=== PATIENT | female | born 1965 | race Caucasian/White ===

== ENCOUNTER 2016-11-28 13:59 | Emergency (ER) | payer MEDICAID ==
[~2016-11-28] VITALS: Ht 157.5 cm; Wt 90.0 kg
[~2016-11-28 13:59] MED LIST: ALBU18HF INH; CLOT30CR24 TOP; CLOT45CR19 VAG; FLUC150T17 PO; METF500T4 PO; PHEN-538 PO; tetracycline
[2016-11-28 14:40] VITALS: Ht 157.5 cm; Wt 90.0 kg
[2016-11-28 15:20] LABS: ADD SCAN DIFF NO
[2016-11-28 15:22] LABS: BASOPHIL # 0.1 10^3/ul (0.0-0.1); BASOPHILS % 0.8 % (0.0-2.0); EOSINOPHILS # 0.3 10^3/ul (0.0-0.5); EOSINOPHILS % 2.7 % (0.0-7.0); HEMATOCRIT 42.5 % (37.0-47.0); HEMOGLOBIN 14.1 g/dl (12.0-16.0); LYMPHOCYTES % 29.4 % (15.0-51.0); MEAN CORPUSCULAR HEMOGLOBIN 28.1 pg (29.0-33.0); MEAN CORPUSCULAR HGB CONC 33.2 g/dl (32.0-37.0); MEAN CORPUSCULAR VOLUME 84.7 fl (82.0-101.0); MONOCYTE # 0.8 10^3/ul (0.3-0.9); MONOCYTES % 7.4 % (0.0-11.0); NEUTROPHILS % 58.6 % (39.0-77.0); PLATELET COUNT 225 10^3/UL (140-415); RED BLOOD COUNT 5.02 10^6/ul (4.20-5.40); RED CELL DISTRIBUTION WIDTH 12.7 % (11.5-14.5); WHITE BLOOD COUNT 10.2 10^3/ul (4.8-10.8)
[2016-11-28 15:36] LABS: CHLORIDE 104 mmol/L (97-110); POTASSIUM 3.8 mmol/L (3.5-5.1); SODIUM 137 mmol/L (135-144)
[2016-11-28 15:37] LABS: INR 0.91; PROTIME 12.3 Sec (12.2-14.2)
[2016-11-28 15:38] LABS: PARTIAL THROMBOPLASTIN TIME 29.4 Sec (25.0-35.0)
[2016-11-28 15:39] LABS: ANION GAP 11 (8-16); BLOOD UREA NITROGEN 10 mg/dl (7-20); CARBON DIOXIDE 26 mmol/L (21-31); CREATININE 0.45 mg/dl (0.44-1.00)
[2016-11-28 15:40] LABS: CALCIUM 9.4 mg/dl (8.4-10.2); GLUCOSE 281 mg/dl (70-220)
[2016-11-28 15:56] LABS: TROPONIN-I < 0.012 ng/ml (0.00-0.12)
[2016-11-28] MEDS ORDERED: METF500T4 PO (16:07)
[2016-11-28] MEDS ORDERED: MTF1000T PO (16:11)
--- NOTE | 2016-11-28 16:12 | ERD ---
ER Documentation Chief Complaint Date/Time DATE: 11/28/16 TIME: 0109 Chief Complaint Complains of chest pain with a prickly sensation to the chest. HPI 51-year-old female presents the emergency department complaining of right-sided chest discomfort. Patient states that for the last 8-12 hours, she had the acute onset of a prickly sensation to the right side of her chest. This does not radiate. Associated with no shortness of breath, nausea, diaphoresis. Patient reports no fevers, chills, hemoptysis. She currently reports the pain is mild and almost a 0 out of 10. Patient has never had similar type pain before. ROS All systems reviewed and are negative except as per history of present illness. Medications Home Meds Active Scripts Metformin* (Glucophage*) 500 Mg Tab, 500 MG PO DAILY, #20 TAB Prov:HARPREET GABRIEL 11/28/16 Clotrimazole* (Clotrimazole-7*) Vaginal Cream..g., 1 APPLIC VAG HS for 7 Days, EA Prov:JOY NELSON NP 03/03/16 Clotrimazole* (Clotrimazole* AF) 1% - 30 Gm Cream.gm., 1 APPLIC TOP BID for 7 Days, TUB Prov:JOY NELSON NP 03/03/16 Fluconazole* (Diflucan*) 150 Mg Tablet, 150 MG PO ONCE, #1 TAB Prov:JOY NELSON NP 03/03/16 Phenazopyridine Hcl* (Pyridium*) 200 Mg Tab, 200 MG PO TID Y for URINARY PAIN, # 6 TAB Prov:JOY NELSON NP 03/03/16 Reported Medications Metformin* (Glucophage*) Unknown Strength Tab, PO BID, #20 TAB 03/03/16 [tetracycline] No Conflict Check 05/14/13 Albuterol Sulfate* (Ventolin HFA*) 18 Gm Hfa.aer.ad, 2 INH INH Q4 08/13/12 Allergies Allergies: Coded Allergies: No Known Allergy (Unverified , 08/13/12) PMhx/Soc History of Surgery: No Anesthesia Reaction: No Hx Neurological Disorder: No Hx Respiratory Disorders: Yes (ASTHMA) Hx Cardiac Disorders: Yes (HTN ) Hx Psychiatric Problems: No Hx Miscellaneous Medical Probl: Yes (DIABETES) Hx Alcohol Use: No Hx Substance Use: No Hx Tobacco Use: No Smoking Status: Unknown if ever smoked FmHx No history of heart disease Physical Exam Vitals Vital Signs Date Time Temp Pulse Resp B/P Pulse Ox O2 Delivery O2 Flow Rate FiO2 11/28/16 15:38 Nasal Cannula 2 11/28/16 14:40 8.4 84 20 124/74 98 Physical Exam GENERAL: The patient is well developed and appropriate for usual state of health in no apparent distress HEENT: Pupils equal, round, and reactive to light. EOMI. There is no scleral icterus. NECK: C-spine is soft and supple, there is no meningismus. There is no cervical lymphadenopathy. LUNGS: Clear to auscultation bilaterally. There are no rales, wheezes or rhonchi. HEART: Regular rate and rhythm, no murmurs, clicks, rubs or gallops. ABDOMEN: Soft, non-tender, non-distended. There are bowel sounds in all four quadrants. No rebound or guarding. EXTREMITIES: There is no peripheral cyanosis or edema. No focal swelling or erythema. NEURO: The patient moves all four extremities with 5/5 strength. Cranial nerves II - XII are intact. Normal gait. Alert and oriented SKIN: There is no apparent rash or petechiae. HEME/LYMPHATIC: There is no evidence of excessive bruising or lymphedema. PSYCHIATRIC: The patient does not appear anxious or depressed. Result Diagram: 11/28/16 1515 11/28/16 1515 Results 24 hrs Laboratory Tests Test 11/28/16 15:15 White Blood Count 10.210^3/ul Red Blood Count 5.0210^6/ul Hemoglobin 14.1g/dl Hematocrit 42.5% Mean Corpuscular Volume 84.7fl Mean Corpuscular Hemoglobin 28.1pg Mean Corpuscular Hemoglobin Concent 33.2g/dl Red Cell Distribution Width 12.7% Platelet Count 24281^3/UL Mean Platelet Volume 10.0fl Neutrophils % 58.6% Lymphocytes % 29.4% Monocytes % 7.4% Eosinophils % 2.7% Basophils % 0.8% Nucleated Red Blood Cells % 0.0/100WBC Neutrophils # 6.010^3/ul Lymphocytes # 3.010^3/ul Monocytes # 0.810^3/ul Eosinophils # 0.310^3/ul Basophils # 0.110^3/ul Nucleated Red Blood Cells # 0.010^3/ul Prothrombin Time 12.3Sec Prothrombin Time Ratio 1.0 INR International Normalized Ratio 0.91 Activated Partial Thromboplast Time 29.4Sec Sodium Level 137mmol/L Potassium Level 3.8mmol/L Chloride Level 104mmol/L Carbon Dioxide Level 26mmol/L Anion Gap 11 Blood Urea Nitrogen 10mg/dl Creatinine 0.45mg/dl Glucose Level 281mg/dl Calcium Level 9.4mg/dl Troponin I < 0.012ng/ml Procedures/MDM Patient was taken to a room, seen and evaluated. Comfort measures were initiated. Diagnostic tests were ordered and reviewed. 3 LEAD RHYTHM STRIP: Normal sinus rhythm without ectopy EK lead EKG reviewed by myself: Normal Sinus Rhythm Normal Bolton and intervals No ST elevation, depression, or T wave inversion Impression: Normal EKG RADIOLOGY: 1 view CXR reviewed by myself: No bony or soft tissue abnormalities Cardiac silhouette normal Mediastinum normal Lung rodriguez normal without infiltrate, mass, or CHF Pleura normal Impression: normal CXR REEVALUATION: Patient remained comfortable and nontoxic in appearance. MEDICAL DECISION MAKING: Patient presents with chest pain of uncertain etiology. Differential diagnosis considered includes acute myocardial infarction , pulmonary embolism, as well as vascular and pulmonary concerns. I have reviewed the patients clinical risk factors, EKG, lab studies and imaging. At this time, despite the fact that the patient is diabetic, patient has no other significant risk factors. Her description of her pain is completely non- atypical for cardiac etiology and her EKG is completely normal. At this time, I believe that she is low risk. Her negative troponin despite over 8 hours of symptoms is also reassuring. Overall, patient appears to be clinically well and appropriate for outpatient care. Departure Diagnosis: Primary Impression: Chest pain Condition: Stable Patient Instructions: Chest Pain, Uncertain Cause Additional Instructions: See your doctor for follow-up as discussed. Take a copy of your test results, if appropriate, to this follow-up visit. See your doctor or return here if your symptoms do not improve as expected. At any time, please return to the emergency department for any change or worsening in her symptoms. HARPREET GABRIEL November 28, 2016 16:12
--- NOTE | 2016-11-28 19:02 | RADRPT ---
PROCEDURE: Chest x-ray CLINICAL INDICATION: Chest pain TECHNIQUE: Chest single view COMPARISON: 08/02/2013 FINDINGS: The heart is normal in size. The pulmonary vessels are normal in caliber. The lungs are clear. Th e costophrenic angles are sharp. The visualized bony thorax is unremarkable. IMPRESSION: No acute cardiopulmonary disease. No interval change RPTAT: HH .Sotero Abraham MD, MD Date Time Electronically viewed and signed by .Sotero Abraham MD, on 11/28/2016 19:02 .W/
== END 2016-11-28 16:22 | disposition home or self-care (01) ==
LOC: E/R 13:59
DX: R07.9 Chest pain, unspecified (principal); I10 Essential (primary) hypertension; E11.9 Type 2 diabetes mellitus without complications; J45.909 Unspecified asthma, uncomplicated; Z79.84 Long term (current) use of oral hypoglycemic drugs
CPT/HCPCS: 36415; 71010; 80048; 84484; 85025; 85610; 85730; 93005; Z7502

== ENCOUNTER 2016-12-10 19:22 | Emergency (ER) | payer MEDICAID ==
[~2016-12-10] VITALS: Ht 149.9 cm; Wt 89.5 kg
[~2016-12-10 19:22] MED LIST changes: -ALBU18HF INH; -CLOT30CR24 TOP; -CLOT45CR19 VAG; -FLUC150T17 PO; +MTF1000T PO; -PHEN-538 PO; -tetracycline
[2016-12-10 19:27] VITALS: Ht 149.9 cm; Wt 89.5 kg
--- NOTE | 2016-12-10 20:03 | ERD ---
ER Documentation Chief Complaint Date/Time DATE: 12/10/16 TIME: 19:54 Chief Complaint SOB and Dizziness x30 minutes ago HPI 51-year-old female who presents emergency department for shortness of breath, epigastric pain, right mid back pain, dizziness that started 30 minutes ago. Daughter stated that patient vomited while on the waiting room with nonbilious and nonbloody vomitus. Denies headache, loss of consciousness, dizziness, blurry vision, changes in vision, photophobia, facial pain, ear pain, throat pain, difficulty swallowing, neck pain, shoulder pain, hemoptysis, loss of appetite, hematochezia, diarrhea, constipation, urinary symptoms, , the possibility of being , bladder and bowel incontinences, extremity weakness, extremity tenderness, numbness or tingling sensation, difficulty walking, recent travel, recent exposure to illness, recent antibiotic use in the last 3 months, fever, chills. Allergy: NKDA. PMH: Diabetes, hypertension, hyperlipidemia. Family medical history: AO LMP: Stated that she is on her period right now. Medications: Metformin, glipizide, lisinopril, atorvastatin. Surgery: Denies. Primary Social History: Not working at this time. Denies smoking, use of alcohol, use of illegal drugs. ROS All systems reviewed and are negative except as per history of present illness. Medications Home Meds Active Scripts Meclizine Hcl* (Antivert*) 12.5 Mg Tab, 12.5 MG PO Q6H Y for DIZZINESS, #20 TAB Prov:PASILABAN,KLAR F 12/10/16 Ondansetron (Ondansetron Odt) 4 Mg Tab.rapdis, 4 MG PO Q8 Y for NAUSEA AND/OR VOMITING, #20 TAB Prov:PASILABAN,ENZOAR F 12/10/16 Metformin* (Glucophage*) 500 Mg Tab, 500 MG PO DAILY, #20 TAB Prov:HARPREET GABRIEL 11/28/16 Reported Medications Metformin* (Glucophage*) 1,000 Mg Tablet, 1000 MG PO BID, #60 TAB 11/28/16 Allergies Allergies: Coded Allergies: No Known Allergy (Unverified , 12/10/16) PMhx/Soc Medical and Surgical Hx: pt denies Surgical Hx History of Surgery: No Anesthesia Reaction: No Hx Neurological Disorder: No Hx Respiratory Disorders: Yes (ASTHMA) Hx Cardiac Disorders: Yes (HTN ) Hx Psychiatric Problems: No Hx Miscellaneous Medical Probl: Yes (DIABETES) Hx Alcohol Use: No Hx Substance Use: No Hx Tobacco Use: No Smoking Status: Never smoker Physical Exam Vitals Vital Signs Date Time Temp Pulse Resp B/P Pulse Ox O2 Delivery O2 Flow Rate FiO2 12/10/16 19:27 97.5 117 22 161/84 97 Physical Exam CONSTITUTIONAL: Well-appearing; well-nourished; in no apparent distress. HEAD: Normocephalic; atraumatic. EYES: Conjunctiva clear, sclera non-icteric, EOM intact. PERRL Ears: Hearing intact. EACs clear, TMs non-bulging, non-inflamed, translucent & mobile, ossicles normal appearance, No obstructions, no erythema, no discharges Nose: No obstructions. No polyps. No external lesions. Mucosa non-inflamed. No external lesions, septum and turbinates normal. No rhinorrhea. No discharges. Frontal sinus is non-tender to palpation. Maxillary sinus is non-tender to palpation. MOUTH: Moist mucous membranes, no lesion, no obstructions, no vesicles, no thrush, patent airway Throat: Uvula in midline. Right tonsil is +1 with no erythema, no exudate. Left tonsil is +1 with no erythema, no exudate. Tolerating secretions well. Good gag reflex. Patent airway. Neck: Supple, without lesions, bruits, or adenopathy. No mass. Thyroid non- enlarged and non-tender to palpation. CHEST: Symmetrical chest. Respirations even and not labored. No retractions noted. CARDIOVASCULAR: Normal S1, S2. RRR. No murmurs, gallops. RESPIRATORY: Normal chest excursion with respiration; breath sounds clear and equal bilaterally; no wheezes, rhonchi, or rales. Breathing even and unlabored. Speaking in clear, full, and complete sentences w/ ease. ABDOMEN: Normal bowel sounds normal. Soft, round, non-distended, non-guarding, no tenderness, no rebound, no organomegaly, no masses, no pulsating abdominal mass. No hernia. No peritoneal signs. : No CVA tenderness. BACK: Symmetrical shoulder. Spine is midline without deformity, tenderness. No evidence of trauma or deformity. PELVIS: Stable pelvis. No evidence of trauma or deformity. MUSCULOSKELETAL: Normal gait and station. No misalignment, asymmetry, crepitation, defects, tenderness, masses, effusions, decreased range of motion, instability, atrophy or abnormal strength or tone in the head, neck, spine, ribs , pelvis or extremities. No calf tenderness. NEUROVASCULAR: Distal pulses are present. Pedal pulse are present, equal, and normal. Capillary refills are < 2 seconds. NEUROLOGIC: Alert and oriented x4. Speaks full and clear sentences. Cranial Nerves II-XII normal. Sensation to pain, touch, and proprioception normal. Grossly unremarkable. No neurologic deficits. Romberg test is negative. PSYCHOLOGICAL: The patients mood and manner are appropriate. No hallucinations , delusions. Not SI. Not HI. Has the capacity to decide for self SKIN: Normal for age and ethnicity; warm; dry; good turgor; no apparent lesions or exudates. No rashes, hives, discoloration. Intact. Result Diagram: 12/10/16204912/10/162049 Results 24 hrs Laboratory Tests Test 12/10/16 20:50 12/10/16 20:55 White Blood Count 12.410^3/ul Red Blood Count 4.8910^6/ul Hemoglobin 13.4g/dl Hematocrit 41.8% Mean Corpuscular Volume 85.5fl Mean Corpuscular Hemoglobin 27.4pg Mean Corpuscular Hemoglobin Concent 32.1g/dl Red Cell Distribution Width 12.8% Platelet Count 81469^3/UL Mean Platelet Volume 10.3fl Neutrophils % 67.9% Lymphocytes % 21.7% Monocytes % 6.4% Eosinophils % 2.4% Basophils % 0.5% Nucleated Red Blood Cells % 0.0/100WBC Neutrophils # 8.510^3/ul Lymphocytes # 2.710^3/ul Monocytes # 0.810^3/ul Eosinophils # 0.310^3/ul Basophils # 0.110^3/ul Nucleated Red Blood Cells # 0.010^3/ul Prothrombin Time 12.6Sec Prothrombin Time Ratio 1.0 INR International Normalized Ratio 0.94 Activated Partial Thromboplast Time 29.7Sec Sodium Level 140mmol/L Potassium Level 4.3mmol/L Chloride Level 100mmol/L Carbon Dioxide Level 28mmol/L Anion Gap 16 Blood Urea Nitrogen 11mg/dl Creatinine 0.57mg/dl Glucose Level 273mg/dl Calcium Level 9.5mg/dl Total Bilirubin 0.4mg/dl Direct Bilirubin 0.00mg/dl Indirect Bilirubin 0.4mg/dl Aspartate Amino Transf (AST/SGOT) 28IU/L Alanine Aminotransferase (ALT/SGPT) 37IU/L Alkaline Phosphatase 104IU/L Troponin I < 0.012ng/ml Total Protein 7.6g/dl Albumin 4.8g/dl Globulin 2.80g/dl Albumin/Globulin Ratio 1.71 Amylase Level 78U/L Lipase 113U/L Urine Color YELLOW Urine Clarity SLIGHTLY CLOUDY Urine pH 5.5 Urine Specific [place] >=1.030 Urine Ketones 15 Urine Nitrite NEGATIVE Urine Bilirubin 1+ Urine Ictotest NEGATIVE Urine Urobilinogen 0.2 E.U./dL Urine Leukocyte Esterase NEGATIVE Urine Microscopic RBC 2-5/HPF Urine Microscopic WBC 0-2/HPF Urine Squamous Epithelial Cells MODERATE Urine Calcium Oxalate Crystals MANY Urine Bacteria FEW Urine Hemoglobin 1+ Urine Glucose 0.1%% Urine Total Protein 4+ Current Medications Medications (Trade) Dose Ordered Sig/Mayra Route PRN Reason Start Time Stop Time Status Last Admin Dose Admin Ondansetron HCl 4 mg 4 mg ONCE STAT IV 12/10/16 20:17 12/10/16 20:18 DC 12/10/16 20:27 Sodium Chloride (NS) 500 ml @ 500 mls/hr Q1H ONCE IV 12/10/16 22:30 12/10/16 23:29 DC 12/10/16 22:20 Procedures/MDM Examination: Please see physical examination Disease process, medical treatment was explained to the patient and family member. They verbalized understanding and agreed with the diagnostic tests, medical treatment, and follow-up care. EKG: Sinus tachycardia with ventricular rate of 110 bpm. No evidence of acute myocardial infarction. Blood works: Reviewed. POC urine : Negative. Urinalysis: Reviewed. Treatment: IV insertion. Zofran 4 mg IV. Normal saline 500 mg IV bolus. P.o. challenge. Re-evaluation: Alert and oriented 4. Speaks full and clear sentences. Denies headache, dizziness, blurred vision, neck pain, shoulder pain, chest, abdominal pain, back pain, nausea. Respirations even and unlabored. Lung sounds are clear to auscultation. No episode of emesis in the emergency department. There is no right upper/right lower/epigastric/left upper/left lower abdominal tenderness and light and deep palpation. Negative on Rovsing's sign. Negative Maribel sign. No peritoneal signs. No CVA tenderness. No pain on eye movement. No neurological deficits. Romberg test is negative. No neurovascular deficit per Consultation: None. Differential diagnosis: Acute myocardial infarction versus acute coronary syndrome versus pneumonia versus chest wall pain versus Medical decision makin-year-old female who presents emergency department for shortness of breath, epigastric pain, right mid back pain, dizziness that started 30 minutes ago. Daughter stated that patient vomited while on the waiting room with nonbilious and nonbloody vomitus. Patient's complaint, patient's history about her complaint, my physical findings, my diagnostic test results, my reevaluation are consistent with final diagnosis of shortness of breath that has resolved, dizziness. Medications prescribed are the following: Antivert. Zofran. Patient and family member are made aware of the side effects and adverse reactions of the medications prescribed. Instructed on when to seek emergent and medical attention in case allergic/anaphylactic reactions or severe side effects and or adverse reactions to medications. Patient and family member verbalized understanding. Patient instructed Instructed to follow-up with his PCP in 24-48 hours. Instructed to Call 911 for chest pain, shortness of breath. Advised to come back here in ED as soon as possible for severity of symptoms which includes but not limited to: any new symptoms; shortness of breath/difficulty of breathing; cardiovascular changes; severe gastrointestinal symptoms; signs and symptoms of bleeding and or infection; signs of compartment syndrome/neurovascular changes; neurological changes/deficits. Patient and family member verbalized understanding. Upon discharge, patient is alert and oriented x 4, speaks full and clear sentences, denies pain, has no neurological deficits, has no neurovascular deficits, difficulty of breathing. Breathing even and unlabored. Lung sounds are clear to auscultation. Not in distress. Appears comfortable. Ambulatory with steady gait. Appears satisfied with care provided here in ED. Departure Diagnosis: Primary Impression: Shortness of breath Additional Impression: Dizziness Condition: Stable Additional Instructions: Instructed to follow-up with his PCP in 24-48 hours. Instructed to Call 911 for chest pain, shortness of breath. Advised to come back here in ED as soon as possible for severity of symptoms which includes but not limited to: any new symptoms; shortness of breath/difficulty of breathing; cardiovascular changes; severe gastrointestinal symptoms; signs and symptoms of bleeding and or infection; signs of compartment syndrome/neurovascular changes; neurological changes/deficits. Patient and family member verbalized understanding. JOY BUCHANAN Dec 10, 2016 20:03
[2016-12-10] MEDS ORDERED: ONDANSETRON 4 MG INJ IV STA (20:17)
[2016-12-10 21:05] LABS: ADD SCAN DIFF NO
[2016-12-10 21:07] LABS: BASOPHIL # 0.1 10^3/ul (0.0-0.1); BASOPHILS % 0.5 % (0.0-2.0); EOSINOPHILS # 0.3 10^3/ul (0.0-0.5); EOSINOPHILS % 2.4 % (0.0-7.0); HEMATOCRIT 41.8 % (37.0-47.0); HEMOGLOBIN 13.4 g/dl (12.0-16.0); LYMPHOCYTES # 2.7 10^3/ul (0.8-2.9); LYMPHOCYTES % 21.7 % (15.0-51.0); MEAN CORPUSCULAR HEMOGLOBIN 27.4 pg (29.0-33.0); MEAN CORPUSCULAR HGB CONC 32.1 g/dl (32.0-37.0); MEAN CORPUSCULAR VOLUME 85.5 fl (82.0-101.0); MEAN PLATELET VOLUME 10.3 fl (7.4-10.4); MONOCYTE # 0.8 10^3/ul (0.3-0.9); MONOCYTES % 6.4 % (0.0-11.0); NEUTROPHIL # 8.5 10^3/ul (1.6-7.5); NEUTROPHILS % 67.9 % (39.0-77.0); PLATELET COUNT 227 10^3/UL (140-415); RED BLOOD COUNT 4.89 10^6/ul (4.20-5.40); RED CELL DISTRIBUTION WIDTH 12.8 % (11.5-14.5); WHITE BLOOD COUNT 12.4 10^3/ul (4.8-10.8)
[2016-12-10 21:08] LABS: ADD UMIC YES; URINE BILIRUBIN (Dip) 1+ (NEGATIVE); URINE BLOOD (Dip) 1+ (NEGATIVE); URINE COLOR YELLOW (YELLOW); URINE KETONES (Dip) 15 (NEGATIVE); URINE LEUKOCYTE ESTERASE (Dip) NEGATIVE (NEGATIVE); URINE NITRITE (Dip) NEGATIVE (NEGATIVE); URINE TOTAL PROTEIN (Dip) 4+ (NEGATIVE); URINE UROBILINOGEN (Dip) 0.2 E.U./dL (0.1-1.0)
[2016-12-10 21:16] LABS: INR 0.94; PROTIME 12.6 Sec (12.2-14.2)
[2016-12-10 21:17] LABS: PARTIAL THROMBOPLASTIN TIME 29.7 Sec (25.0-35.0)
[2016-12-10 21:20] LABS: ALANINE AMINOTRANSFERASE 37 IU/L (13-69); ALBUMIN 4.8 g/dl (3.3-4.9); ALBUMIN/GLOBULIN RATIO 1.71; ALKALINE PHOSPHATASE 104 IU/L (42-121); AMYLASE 78 U/L (11-123); ANION GAP 16 (8-16); ASPARTATE AMINO TRANSFERASE 28 IU/L (15-46); BILIRUBIN,INDIRECT 0.4 mg/dl (0-1.1); BILIRUBIN,TOTAL 0.4 mg/dl (0.2-1.3); BLOOD UREA NITROGEN 11 mg/dl (7-20); CALCIUM 9.5 mg/dl (8.4-10.2); CARBON DIOXIDE 28 mmol/L (21-31); CHLORIDE 100 mmol/L (97-110); CREATININE 0.57 mg/dl (0.44-1.00); GLUCOSE 273 mg/dl (70-220); POTASSIUM 4.3 mmol/L (3.5-5.1); SODIUM 140 mmol/L (135-144); TOTAL PROTEIN 7.6 g/dl (6.1-8.1)
[2016-12-10 21:21] LABS: ICTOTEST NEGATIVE (NEGATIVE)
[2016-12-10 21:22] LABS: BACTERIA,URINE FEW; SQUAMOUS EPITHELIAL CELL,UR MODERATE
[2016-12-10 21:32] LABS: TROPONIN-I < 0.012 ng/ml (0.00-0.12)
--- NOTE | 2016-12-10 21:59 | RADRPT ---
PROCEDURE: XR Chest. CLINICAL INDICATION: Cough. TECHNIQUE: PA and lateral views of the chest were obtained. COMPARISON: 08/02/2013 FINDINGS: The trachea central bronchi are patent. The cardiomediastinal silhouette is within normal limits. The lungs are clear. No pleural effusion or pneumothorax is identified. The visualized osseous str uctures are intact. RPTAT:HJJR IMPRESSION: Unremarkable two-view chest x-ray. Physician Galen Date Time Electronically viewed and signed by Gildardo Limon Physician on 12/10/2016 21:58 JR/
[2016-12-10] MEDS ORDERED: MECL12.574 PO (22:17)
[2016-12-10] MEDS ORDERED: ONDA4TAB14 PO (22:17)
[2016-12-10] MEDS ORDERED: SOD CHLORIDE 0.9% 500 ML IV ONE (22:30)
== END 2016-12-10 23:58 | disposition home or self-care (01) ==
LOC: FTE 19:22
DX: R06.02 Shortness of breath (principal); R42 Dizziness and giddiness; I10 Essential (primary) hypertension; J45.909 Unspecified asthma, uncomplicated; E11.9 Type 2 diabetes mellitus without complications; Z79.84 Long term (current) use of oral hypoglycemic drugs
CPT/HCPCS: 36415; 71020; 80053; 81001; 82150; 83690; 84484; 85025; 85610; 85730; 96374; J2405; J7040; Z7502; 93005

== ENCOUNTER 2018-09-04 19:41 | Emergency (ER) | payer MEDICAID ==
[~2018-09-04] VITALS: Ht 157.5 cm; Wt 90.0 kg
[~2018-09-04 19:41] MED LIST changes: +MECL12.574 PO; +METF-849 PO; -METF500T4 PO; +ONDA4TAB14 PO
[2018-09-04 19:48] VITALS: Ht 157.5 cm; Wt 90.0 kg
[2018-09-04] MEDS ORDERED: morphine 4 MG/ML VIAL IV STA (22:57)
[2018-09-04] MEDS ORDERED: ONDANSETRON 4 MG INJ IV STA (22:57)
[2018-09-04] MEDS ORDERED: SOD CHLORIDE 0.9% 1,000 ML IV STA (22:57)
[2018-09-05] MEDS ORDERED: TRAM50TA2 PO (01:56)
[2018-09-05] MEDS ORDERED: ONDA4TAB14 PO (01:56)
[2018-09-05] MEDS ORDERED: SULF1TAB31 PO (01:56)
--- NOTE | 2018-09-05 01:59 | ERD ---
ER Documentation Chief Complaint Chief Complaint LEFT FLANK PAIN X 4 DAYS HPI This is a very pleasant 52-year-old female with mild to moderate left flank pain over the past 4 days that is colicky in nature with no exacerbating relieving factors. He does have mild associated nausea but no vomiting. No fevers or chills. No dysuria. No other current complaints. ROS All systems reviewed and are negative except as per history of present illness. Medications Home Meds Active Scripts Ondansetron (Ondansetron Odt) 4 Mg Tab.rapdis, 4 MG PO Q6H PRN for NAUSEA AND/OR VOMITING, #10 TAB Prov:KEENAN HARE S. 09/05/18 Tramadol HCl (Tramadol HCl) 50 Mg Tablet, 50 MG PO Q4 PRN for PAIN, #20 TAB Prov:KEENAN HARE S. 09/05/18 Sulfamethoxazole/Trimethoprim* (Bactrim Ds* Tablet) 1 Each Tablet, 1 TAB PO BID, #6 TAB Prov:KEENAN HARE S. 09/05/18 Meclizine Hcl* (Antivert*) 12.5 Mg Tab, 12.5 MG PO Q6H PRN for DIZZINESS, #20 TAB Prov:CYILAJOY MCDOWELL F 12/10/16 Ondansetron (Ondansetron Odt) 4 Mg Tab.rapdis, 4 MG PO Q8 PRN for NAUSEA AND/OR VOMITING, #20 TAB Prov:CYILAJOY MCDOWELL F 12/10/16 Metformin* (Glucophage*) 500 Mg Tab, 500 MG PO DAILY, #20 TAB Prov:HARPREET GABRIEL 11/28/16 Reported Medications Metformin* (Glucophage*) 1,000 Mg Tablet, 1000 MG PO BID, #60 TAB 11/28/16 Allergies Allergies: Coded Allergies: No Known Allergy (Unverified , 12/10/16) PMhx/Soc Medical and Surgical Hx: pt denies Surgical Hx History of Surgery: No Anesthesia Reaction: No Hx Neurological Disorder: No Hx Respiratory Disorders: Yes (ASTHMA) Hx Cardiac Disorders: Yes (HTN ) Hx Psychiatric Problems: No Hx Miscellaneous Medical Probl: Yes (DIABETES) Hx Alcohol Use: No Hx Substance Use: No Hx Tobacco Use: No Smoking Status: Never smoker Physical Exam Vitals Vital Signs Date Temp Pulse Resp B/P (MAP) Pulse Ox O2 O2 Flow FiO2 Time Delivery Rate 09/05/18 98 13 119/60 100 Room Air 01:14 (79) 09/04/18 98.6 85 17 133/70 100 Room Air 23:36 (91) 09/04/18 99.8 108 20 182/77 97 19:48 (112) Physical Exam Const: No acute distress Head: Atraumatic Eyes: Normal Conjunctiva ENT: Normal External Ears, Nose and Mouth. Neck: Full range of motion. No meningismus. Resp: Clear to auscultation bilaterally Cardio: Regular rate and rhythm, no murmurs Abd: Soft, non tender, non distended. Normal bowel sounds Skin: No petechiae or rashes Back: No midline or flank tenderness Ext: No cyanosis, or edema Neur: Awake and alert Psych: Normal Mood and Affect Result Diagram: 09/04/18 2312 09/04/18 2312 Results 24 hrs Laboratory Tests Test 09/04/18 23:10 09/04/18 23:12 09/04/18 23:13 Bedside Urine pH (LAB) 5.5 Bedside Urine Protein (LAB) 1+ Bedside Urine Glucose (UA) Negative Bedside Urine Ketones (LAB) Trace Bedside Urine Blood 2+ Bedside Urine Nitrite (LAB) Negative Bedside Urine Leukocyte Esterase (L Negative White Blood Count 13.7 10^3/ul Red Blood Count 4.43 10^6/ul Hemoglobin 12.4 g/dl Hematocrit 39.2 % Mean Corpuscular Volume 88.5 fl Mean Corpuscular Hemoglobin 28.0 pg Mean Corpuscular Hemoglobin Concent 31.6 g/dl Red Cell Distribution Width 13.0 % Platelet Count 279 10^3/UL Mean Platelet Volume 9.6 fl Immature Granulocytes % 0.600 % Neutrophils % 66.7 % Lymphocytes % 23.1 % Monocytes % 6.7 % Eosinophils % 2.3 % Basophils % 0.6 % Nucleated Red Blood Cells % 0.0 /100WBC Immature Granulocytes # 0.080 10^3/ul Neutrophils # 9.1 10^3/ul Lymphocytes # 3.2 10^3/ul Monocytes # 0.9 10^3/ul Eosinophils # 0.3 10^3/ul Basophils # 0.1 10^3/ul Nucleated Red Blood Cells # 0.0 10^3/ul Urine Color YELLOW Urine Clarity CLOUDY Urine pH 5.0 Urine Specific [place] 1.023 Urine Ketones TRACE mg/dL Urine Nitrite NEGATIVE mg/dL Urine Bilirubin NEGATIVE mg/dL Urine Urobilinogen NEGATIVE mg/dL Urine Leukocyte Esterase NEGATIVE Ish/ul Urine Microscopic RBC 45 /HPF Urine Microscopic WBC 4 /HPF Urine Squamous Epithelial Cells MODERATE /HPF Urine Mucus MANY /HPF Urine Hemoglobin 2+ mg/dL Urine Glucose NEGATIVE mg/dL Urine Total Protein NEGATIVE mg/dl Sodium Level 139 mmol/L Potassium Level 4.1 mmol/L Chloride Level 99 mmol/L Carbon Dioxide Level 28 mmol/L Anion Gap 12 Blood Urea Nitrogen 14 mg/dl Creatinine 0.65 mg/dl Est Glomerular Filtrat Rate mL/min > 60 mL/min Glucose Level 151 mg/dl Calcium Level 9.7 mg/dl Total Bilirubin 0.7 mg/dl Direct Bilirubin 0.00 mg/dl Indirect Bilirubin 0.7 mg/dl Aspartate Amino Transf (AST/SGOT) 20 IU/L Alanine Aminotransferase (ALT/SGPT) 17 IU/L Alkaline Phosphatase 72 IU/L Total Protein 8.0 g/dl Albumin 4.5 g/dl Globulin 3.50 g/dl Albumin/Globulin Ratio 1.28 Lipase 111 U/L POC Beta HCG, Qualitative NEGATIVE Current Medications Medications Dose Sig/Mayra Start Time Status Last (Trade) Ordered Route PRN Stop Time Admin Dose Reason Admin Sodium 1,000 ml @ Q1H STAT 09/04/18 DC 09/04/18 Chloride 1,000 mls/hr IV 22:57 09/04/18 23:10 23:56 Morphine 4 mg ONCE STAT 09/04/18 DC 09/04/18 Sulfate IV 22:57 09/04/18 23:10 (morphine) 22:58 Ondansetron 4 mg ONCE STAT 09/04/18 DC 09/04/18 HCl (Zofran IV 22:57 09/04/18 23:10 Inj) 22:58 Procedures/MDM Emergency department course: Patient seen and evaluated by triage nurse. Placed in bed from evaluation. Had intravenous access. Given fluid bolus. Given pain medications. Has had CT scan of the abdomen pelvis. Medical decision makin-year-old female with renal colic. At this point she is clinically stable for outpatient management and she has no evidence of intra- abdominal surgical process. She is now pain controlled and tolerating p.o. She is stable for trial of outpatient management. Patient be discharged home. She has been advised to follow-up in 8 hours for serial abdominal exams to which she agrees. Departure Diagnosis: Primary Impression: Flank pain Condition: Stable Patient Instructions: Kidney Stone W/ Colic KEENAN HARE Sep 05, 2018 01:59
[2018-09-05 02:13] VITALS: BP 131/79; PULSE 85; RESP 18
== END 2018-09-05 02:13 | disposition home or self-care (01) ==
LOC: E/R 19:41
DX: R10.9 Unspecified abdominal pain (principal); E11.9 Type 2 diabetes mellitus without complications; I10 Essential (primary) hypertension; J45.909 Unspecified asthma, uncomplicated; Z79.84 Long term (current) use of oral hypoglycemic drugs
CPT/HCPCS: 36415; 74176; 80053; 81001; 81025; 83690; 85025; 87086; 96374; 96375; J2270; J2405; J7030; Z7502; Z7610; 81003

== ENCOUNTER 2018-10-19 20:35 | Emergency (ER) | payer MEDICAID ==
[~2018-10-19] VITALS: Ht 154.9 cm; Wt 89.4 kg
[~2018-10-19 20:35] MED LIST changes: +SULF1TAB31 PO; +TRAM50TA2 PO
[2018-10-19 20:56] VITALS: Ht 154.9 cm; Wt 89.4 kg
[2018-10-19] MEDS ORDERED: ALBUTEROL 0.083% (NEB) 2.5 MG/3 ML AMP NEB STA (23:36)
[2018-10-19] MEDS ORDERED: IPRATROPIUM (NEB) 0.5 MG/2.5 ML AMP NEB STA (23:36)
[2018-10-20] MEDS ORDERED: DEXAMETHASONE 4 MG/ML 1 ML INJ PO ONE
[2018-10-20] MEDS ORDERED: AZIT250T PO (00:25)
--- NOTE | 2018-10-20 00:27 | ERD ---
ER Documentation Chief Complaint Chief Complaint cough x 3 days HPI 53-year-old female with history of diabetes and hypertension and asthma is here complaining of 3 days of fever and cough. Her cough is dry and worse at night and her asthma is making it worse. She uses her inhaler at home. No hemoptysis or unplanned weight loss. No vomiting. No chest pain or palpitations. ROS All systems reviewed and are negative except as per history of present illness. Medications Home Meds Active Scripts Azithromycin* (Zithromax*) 250 Mg Tablet, 250 MG PO .JohnPACK DIRECTED, #6 TAB TAKE 500 MG (2 TABS) THE FIRST DAY THEN 250 MG (1 TAB) DAYS 2-5 Prov:KAT COLLINS PA-C 10/20/18 Ondansetron (Ondansetron Odt) 4 Mg Tab.rapdis, 4 MG PO Q6H PRN for NAUSEA AND/OR VOMITING, #10 TAB Prov:KEENAN HARE S. 09/05/18 Tramadol HCl (Tramadol HCl) 50 Mg Tablet, 50 MG PO Q4 PRN for PAIN, #20 TAB Prov:KEENAN HARE S. 09/05/18 Sulfamethoxazole/Trimethoprim* (Bactrim Ds* Tablet) 1 Each Tablet, 1 TAB PO BID, #6 TAB Prov:KEENAN HARE S. 09/05/18 Meclizine Hcl* (Antivert*) 12.5 Mg Tab, 12.5 MG PO Q6H PRN for DIZZINESS, #20 TAB Prov:JOY BUCHANAN F 12/10/16 Ondansetron (Ondansetron Odt) 4 Mg Tab.rapdis, 4 MG PO Q8 PRN for NAUSEA AND/OR VOMITING, #20 TAB Prov:JOY BUCHANAN F 12/10/16 Metformin* (Glucophage*) 500 Mg Tab, 500 MG PO DAILY, #20 TAB Prov:HARPREET GABRIEL 11/28/16 Reported Medications Metformin* (Glucophage*) 1,000 Mg Tablet, 1000 MG PO BID, #60 TAB 11/28/16 Allergies Allergies: Coded Allergies: No Known Allergy (Unverified , 12/10/16) PMhx/Soc Medical and Surgical Hx: pt denies Surgical Hx History of Surgery: No Anesthesia Reaction: No Hx Neurological Disorder: No Hx Respiratory Disorders: Yes (ASTHMA) Hx Cardiac Disorders: Yes (HTN ) Hx Psychiatric Problems: No Hx Miscellaneous Medical Probl: Yes (DIABETES) Hx Alcohol Use: No Hx Substance Use: No Hx Tobacco Use: No Smoking Status: Never smoker FmHx Family History: diabetes Physical Exam Vitals Vital Signs Date Temp Pulse Resp B/P (MAP) Pulse Ox O2 O2 Flow FiO2 Time Delivery Rate 10/19/18 83 18 99 21 23:52 10/19/18 98.0 91 18 143/78 98 20:56 (99) Physical Exam INITIAL VITAL SIGNS: Reviewed by me GENERAL: Awake, alert and oriented x 4, well appearing, nontoxic, speaking in full sentences. No acute distress HEAD: Atraumatic NECK: Supple. No masses. Full range of motion. No meningismus. No midline tenderness. EYES: EOMI. PERRL. RESPIRATORY: Scant wheezing bilaterally CV: Regular rate and rhythm. No murmurs, rubs, or gallops. Results 24 hrs Current Medications Medications Dose Sig/Mayra Start Time Status Last (Trade) Ordered Route PRN Stop Time Admin Dose Reason Admin 10 mg ONCE ONCE 10/20/18 DC Dexamethasone PO 00:00 (Decadron) 10/20/18 00:01 Albuterol 5 mg ONCE STAT 10/19/18 DC 10/19/18 (Proventil NEB 23:36 23:52 0.083% (Neb)) 10/19/18 23:37 Ipratropium 0.5 mg ONCE STAT 10/19/18 DC 10/19/18 [place] NEB 23:36 23:51 (Atrovent 10/19/18 23:37 0.02% (Neb)) Procedures/MDM Patient given Decadron and a breathing treatment with improvement. Discharged with azithromycin. Patient counseled regarding my diagnostic impression and care plan. Prior to discharge all questions answered. Pt agrees with treatment plan and understands strict return precautions. Pt is instructed to follow up with primary care provider within 24-48 hours. Precautionary instructions provided including instructions to return to the ER if not improving or for any worsening or changing symptoms or concerns. Departure Diagnosis: Primary Impression: Wheezy bronchitis Condition: Stable Patient Instructions: Bronchitis With Wheezing (Adult) Additional Instructions: Llame al doctor MAANA y eligio rangel KEVIN PARA DENTRO DE 1-2 PIÑA.Dgale a la secretaria que nosotros le instruimos hacer esta kevin.Avise o llame si roberts condicin se empeora antes de la kevin. Regresa aqui si peor o no mejor. KAT COLLINS PA-C Oct 20, 2018 00:27
[2018-10-20 01:09] VITALS: BP 138/76; PULSE 90; RESP 18
== END 2018-10-20 01:09 | disposition home or self-care (01) ==
LOC: FTE 20:35
DX: J20.9 Acute bronchitis, unspecified (principal); I10 Essential (primary) hypertension; E11.9 Type 2 diabetes mellitus without complications; Z79.84 Long term (current) use of oral hypoglycemic drugs
CPT/HCPCS: 94664; J1100; Z7502; Z7610

== ENCOUNTER 2018-11-17 17:37 | Emergency (ER) | payer MEDICAID ==
[~2018-11-17] VITALS: Wt 78.0 kg
[~2018-11-17 17:37] MED LIST changes: +AZIT250T PO
[2018-11-17] MEDS ORDERED: ALBUTEROL 0.5% (NEB) 2.5 MG/0.5 ML AMP INH STA (18:31)
[2018-11-17] MEDS ORDERED: IPRATROPIUM (NEB) 0.5 MG/2.5 ML AMP INH STA (18:31)
[2018-11-17] MEDS ORDERED: predniSONE 20 MG TAB PO STA (18:31)
[2018-11-17] MEDS ORDERED: BENZ200C68 PO (19:56)
[2018-11-17] MEDS ORDERED: ALBU18HF INHALATION (19:56)
[2018-11-17] MEDS ORDERED: BECL10.6 IH (19:56)
[2018-11-17] MEDS ORDERED: PRED20TA PO (19:56)
[2018-11-17 20:05] VITALS: BP 146/84; PULSE 78; RESP 18
--- NOTE | 2018-11-19 22:52 | ERD ---
ER Documentation Chief Complaint Chief Complaint COUGH AND CONGESTION WITH INTERMITTENT FEVERS. NO RELEIF WITH ALBUTEROL HPI 53-year-old female with past medical history of asthma presenting to the emergency department complains of intermittent cough for the past 3 days. She states the cough is dry in nature. She is also had associated shortness of breath which is moderate in severity. She took Ventolin inhaler at home without significant relief. She denies any fevers, chills, nausea, vomiting, abdominal pain, or other symptoms at this time. ROS All systems reviewed and are negative except as per history of present illness. Medications Home Meds Active Scripts Benzonatate* (Benzonatate*) 200 Mg Capsule, 200 MG PO TID PRN for COUGH, #15 CAP Prov:KEENAN ANTONIO PA-C 11/17/18 Albuterol Sulfate* (Ventolin HFA*) 18 Gm Hfa.aer.ad, 2 PUFF INHALATION Q4H, #1 INHALER Prov:KEENAN ANTONIO PA-C 11/17/18 Beclomethasone Dipropionate (Qvar Redihaler (40 MCG)) 10.6 Gm Hfa.aeroba, 10.6 GM IH DAILY, #1 INH Prov:KEENAN ANTONIO PA-C 11/17/18 Prednisone* (Prednisone*) 20 Mg Tab, 40 MG PO DAILY for 4 Days, TAB Prov:KEENAN ANTONIO PA-C 11/17/18 Azithromycin* (Zithromax*) 250 Mg Tablet, 250 MG PO .ZPACK DIRECTED, #6 TAB TAKE 500 MG (2 TABS) THE FIRST DAY THEN 250 MG (1 TAB) DAYS 2-5 Prov:KAT COLLINS PA-C 10/20/18 Ondansetron (Ondansetron Odt) 4 Mg Tab.rapdis, 4 MG PO Q6H PRN for NAUSEA AND/OR VOMITING, #10 TAB Prov:KEENAN HARE 09/05/18 Tramadol HCl (Tramadol HCl) 50 Mg Tablet, 50 MG PO Q4 PRN for PAIN, #20 TAB Prov:KEENAN HARE 09/05/18 Sulfamethoxazole/Trimethoprim* (Bactrim Ds* Tablet) 1 Each Tablet, 1 TAB PO BID, #6 TAB Prov:KEENAN HARE 09/05/18 Meclizine Hcl* (Antivert*) 12.5 Mg Tab, 12.5 MG PO Q6H PRN for DIZZINESS, #20 TAB Prov:JOY BUCHANAN 12/10/16 Ondansetron (Ondansetron Odt) 4 Mg Tab.rapdis, 4 MG PO Q8 PRN for NAUSEA AND/OR VOMITING, #20 TAB Prov:JOY BUCHANAN 12/10/16 Metformin* (Glucophage*) 500 Mg Tab, 500 MG PO DAILY, #20 TAB Prov:HARPREET GABRIEL 11/28/16 Reported Medications Metformin* (Glucophage*) 1,000 Mg Tablet, 1000 MG PO BID, #60 TAB 11/28/16 Allergies Allergies: Coded Allergies: No Known Allergy (Unverified , 12/10/16) PMhx/Soc History of Surgery: No Anesthesia Reaction: No Hx Neurological Disorder: No Hx Respiratory Disorders: Yes (ASTHMA) Hx Cardiac Disorders: Yes (HTN ) Hx Psychiatric Problems: No Hx Miscellaneous Medical Probl: Yes (DIABETES) Hx Alcohol Use: No Hx Substance Use: No Hx Tobacco Use: No FmHx Family History: No diabetes Physical Exam Vitals Vital Signs Date Temp Pulse Resp B/P (MAP) Pulse Ox O2 O2 Flow FiO2 Time Delivery Rate 11/17/18 98.3 78 18 146/84 98 Room Air 20:05 (104) 11/17/18 91 22 95 21 18:56 11/17/18 98.3 90 18 150/88 98 17:44 (108) Physical Exam Const: No acute distress Head: Atraumatic Eyes: Normal Conjunctiva ENT: Normal External Ears, Nose and Mouth. Neck: Full range of motion. No meningismus. Resp: no respiratory distress. No crackles. Inspiratory and expiratory wheezing noted to all lung rodriguez. Cardio: Regular rate and rhythm, no murmurs Skin: No petechiae or rashes Ext: No cyanosis, or edema Neur: Awake and alert Psych: Normal Mood and Affect Results 24 hrs Current Medications Medications Dose Sig/Mayra Start Time Status Last (Trade) Ordered Route PRN Stop Time Admin Dose Reason Admin Albuterol 10 mg ONCE STAT 11/17/18 DC 11/17/18 (Proventil INH 18:31 18:55 0.5% (Neb)) 11/17/18 18:33 Ipratropium 1 mg ONCE STAT 11/17/18 DC 11/17/18 [place] INH 18:31 18:55 (Atrovent 11/17/18 18:33 0.02% (Neb)) Prednisone 60 mg ONCE STAT 11/17/18 DC 11/17/18 (Prednisone) PO 18:31 19:00 11/17/18 18:33 Procedures/MDM 53-year-old female with past medical history of asthma presenting to the emergency department with signs and symptoms most consistent with acute asthma exacerbation. Patient had inspiratory and expiratory wheezing to all lung rodriguez. No evidence of significant respiratory distress. The patient was placed on a stretcher and was administered albuterol/ipratropium breathing treatment for 1 hour. She is also administered prednisone. On reevaluation she was significantly improved. Wheezing had diminished. Patient was stable and appropriate for discharge and further outpatient management. Patient's respiratory status has stabilized while in the department and is appropriate for outpatient work up. Exam and work up not consistent w/ impending respiratory failure or cardiovascular collapse. No evidence of life-threatening pathology at time of discharge. Pt/family in agreement with discharge plan/diagnosis. Pt/family advised to return immediately with any new or worsening symptoms. Follow-up with primary care physician within the next 1-2 days. Patient's blood pressure was elevated (>120/80) but appears stable without evidence of hypertension emergency or urgency. The patient is to follow-up and pursue outpatient monitoring and therapy with their primary care physician within 1 week and return immediately if they have any new, worsening, or concerning symptoms. Disclaimer: Inadvertent spelling and grammatical errors are likely due to EHR/dictation software use and do not reflect on the overall quality of patient care. Also, please note that the electronic time recorded on this note does not necessarily reflect the actual time of the patient encounter. Departure Diagnosis: Primary Impression: Asthma with acute exacerbation Asthma severity: unspecified severity Asthma persistence: unspecified Qualified Codes: J45.901 - Unspecified asthma with (acute) exacerbation Condition: Fair Patient Instructions: Asthma, Acute (Adult) [facility] Usted se greco hecho un examen mdico de control que le indica que no est en rangel condicin que requiera tratamiento urgente en el Departamento de Emergencia. Un estudio ms profundo y el tratamiento de roberts condicin pueden esperar sin ningn riesgo hasta que usted sea atendida/o en el consultorio de roberts mdico o rangel clnica. Es responsabilidad suya arreglar rangel kevin para el seguimiento del forrest. MANEJO DE CONDICIONES NO URGENTES EN EL FUTURO 1) Si usted tiene un mdico de atencin primaria: Usted debera llamar a roberts mdico de atencin primaria antes de venir al departamento de emergencia. Despus de las horas de consultorio, roberts doctor o roberts asociado/a est disponible por telfono. El mdico o enfermero de julieta en el servicio telefnico puede asesorarle por kait medio para atender el problema, o forrest contrario se puede programar rangel kevin. 2) Si usted no tiene un mdico de atencin primaria: Llame al mdico o clnica de referencia que aparece abajo svetlana las horas de consultorio para hacer rangel kevin para que le vean. CLINICAS: [facility] [phone] [address] [facility] [facility] [phone] [address] [facility] [facility] [phone] [address] [facility] [place] [id number] [phone] [facility]. [place] [id number] [phone] [facility]. [phone] [address] Additional Instructions: Llame al doctor MAANA y eligio rangel KEVIN PARA DENTRO DE 1-2 PIÑA.Dgale a la secretaria que nosotros le instruimos hacer esta kevin.Avise o llame si roberts con dicin se empeora antes de la kevin. Regresa aqui si peor o no mejor. KEENAN ANTONIO PA-C November 19, 2018 22:52
== END 2018-11-17 20:06 | disposition home or self-care (01) ==
LOC: FTE 17:37
DX: J45.901 Unspecified asthma with (acute) exacerbation (principal); E11.9 Type 2 diabetes mellitus without complications; I10 Essential (primary) hypertension; Z79.84 Long term (current) use of oral hypoglycemic drugs
CPT/HCPCS: 94644; J7512; Z7502; Z7610

== ENCOUNTER 2018-12-06 19:39 | Emergency (ER) | payer MEDICAID ==
[~2018-12-06] VITALS: Ht 152.4 cm; Wt 91.5 kg
[~2018-12-06 19:39] MED LIST changes: +ALBU18HF INHALATION; +BECL10.6 IH; +BENZ200C68 PO; +PRED20TA PO
[2018-12-06 19:44] VITALS: Ht 152.4 cm; Wt 91.5 kg
[2018-12-06] MEDS ORDERED: METHYLPREDNISOLONE 125 MG INJ IV STA (21:06)
[2018-12-06] MEDS ORDERED: ALBUTEROL 0.083% (NEB) 2.5 MG/3 ML AMP NEB STA (21:06)
[2018-12-06] MEDS ORDERED: IPRATROPIUM (NEB) 0.5 MG/2.5 ML AMP NEB STA (21:06)
[2018-12-06] MEDS ORDERED: PRED20TA PO (21:59)
[2018-12-06] MEDS ORDERED: ALBU18HF INHALATION (21:59)
--- NOTE | 2018-12-06 22:08 | ERD ---
ER Documentation Chief Complaint Chief Complaint cough x 3 days HPI 53-year-old female with history of asthma presents with cough and wheezing for the past 3 days. States she has been taking her albuterol. Last dose was 1 hour ago. Denies any fever, hemoptysis, chest pain, stridor, orthopnea, leg swelling, leg erythema, dyspnea, respiratory distress. History of diabetes and hypertension. ROS All systems reviewed and are negative except as per history of present illness. Medications Home Meds Active Scripts Prednisone* (Prednisone*) 20 Mg Tab, 60 MG PO DAILY for 7 Days, TAB Prov:KEENAN BAEZA 12/06/18 Albuterol Sulfate* (Ventolin HFA*) 18 Gm Hfa.aer.ad, 2 PUFF INHALATION Q4H, #1 INHALER Prov:KEENAN BAEZA 12/06/18 Benzonatate* (Benzonatate*) 200 Mg Capsule, 200 MG PO TID PRN for COUGH, #15 CAP Prov:KEENAN ANTONIO PA-C 11/17/18 Albuterol Sulfate* (Ventolin HFA*) 18 Gm Hfa.aer.ad, 2 PUFF INHALATION Q4H, #1 INHALER Prov:KEENAN ANTONIO PA-C 11/17/18 Beclomethasone Dipropionate (Qvar Redihaler (40 MCG)) 10.6 Gm Hfa.aeroba, 10.6 GM IH DAILY, #1 INH Prov:KEENAN ANTONIO PA-C 11/17/18 Prednisone* (Prednisone*) 20 Mg Tab, 40 MG PO DAILY for 4 Days, TAB Prov:KEENAN ANTONIO PA-C 11/17/18 Azithromycin* (Zithromax*) 250 Mg Tablet, 250 MG PO .GIOCK DIRECTED, #6 TAB TAKE 500 MG (2 TABS) THE FIRST DAY THEN 250 MG (1 TAB) DAYS 2-5 Prov:KAT COLLINS PA-C 10/20/18 Ondansetron (Ondansetron Odt) 4 Mg Tab.rapdis, 4 MG PO Q6H PRN for NAUSEA AND/OR VOMITING, #10 TAB Prov:KEENAN HARE 09/05/18 Tramadol HCl (Tramadol HCl) 50 Mg Tablet, 50 MG PO Q4 PRN for PAIN, #20 TAB Prov:KEENAN HARE. 09/05/18 Sulfamethoxazole/Trimethoprim* (Bactrim Ds* Tablet) 1 Each Tablet, 1 TAB PO BID, #6 TAB Prov:KEENAN HARE. 09/05/18 Meclizine Hcl* (Antivert*) 12.5 Mg Tab, 12.5 MG PO Q6H PRN for DIZZINESS, #20 TAB Prov:JOY BUCHANAN 12/10/16 Ondansetron (Ondansetron Odt) 4 Mg Tab.rapdis, 4 MG PO Q8 PRN for NAUSEA AND/OR VOMITING, #20 TAB Prov:JOY BUCHANAN 12/10/16 Metformin* (Glucophage*) 500 Mg Tab, 500 MG PO DAILY, #20 TAB Prov:HARPREET GABRIEL 11/28/16 Reported Medications Metformin* (Glucophage*) 1,000 Mg Tablet, 1000 MG PO BID, #60 TAB 11/28/16 Allergies Allergies: Coded Allergies: No Known Allergy (Unverified , 12/10/16) PMhx/Soc History of Surgery: No Anesthesia Reaction: No Hx Neurological Disorder: No Hx Respiratory Disorders: Yes (ASTHMA) Hx Cardiac Disorders: Yes (HTN ) Hx Psychiatric Problems: No Hx Miscellaneous Medical Probl: Yes (DIABETES) Hx Alcohol Use: No Hx Substance Use: No Hx Tobacco Use: No Smoking Status: Never smoker FmHx Family History: No diabetes, No coronary disease, No other Physical Exam Vitals Vital Signs Date Temp Pulse Resp B/P (MAP) Pulse Ox O2 O2 Flow FiO2 Time Delivery Rate 12/06/18 94 19 95 21 21:15 12/06/18 98.2 98 20 145/82 95 19:44 (103) Physical Exam Const: No acute distress Head: Atraumatic Eyes: Normal Conjunctiva ENT: Normal External Ears, Nose and Mouth. Neck: Full range of motion. No meningismus. Resp: Diffuse wheezing heard in lung rodriguez bilaterally. Equal breath sounds. Equal rise and fall of chest. Cardio: Regular rate and rhythm, no murmurs Abd: Soft, non tender, non distended. Normal bowel sounds Skin: No petechiae or rashes Back: No midline or flank tenderness Ext: No cyanosis, or edema Neur: Awake and alert Psych: Normal Mood and Affect Results 24 hrs Current Medications Medications Dose Sig/Mayra Start Time Status Last (Trade) Ordered Route PRN Stop Time Admin Dose Reason Admin Albuterol 7.5 mg ONCE STAT 12/06/18 DC 12/06/18 (Proventil NEB 21:06 12/06/18 21:15 0.083% (Neb)) 21:08 Ipratropium 0.5 mg ONCE STAT 12/06/18 DC 12/06/18 [place] NEB 21:06 12/06/18 21:15 (Atrovent 21:08 0.02% (Neb)) 125 mg ONCE STAT 12/06/18 DC 12/06/18 Methylprednis IV 21:06 12/06/18 21:15 olone Sodium 21:08 Succinate (Solu-Medrol) Procedures/MDM DIAGNOSTIC IMAGING REPORT Patient: JESSICA EL : 1965 Age: 53 Sex: F MR #: [id number] DOS: 12/06/182105 Ordering MD: KEENAN BAEZA Location: [facility] Room/Bed: PROCEDURE: XR Chest. CLINICAL INDICATION: Asthma exacerbation TECHNIQUE: Single portable view of the chest was obtained. COMPARISON: 07/06/2018 FINDINGS: Cardiac/vascular structures: Normal cardiomediastinal silhouette. Pulmonary: Lungs are clear. No pleural effusion. No evidence of pneumothorax. Osseous structures: Normal Soft tissues: Normal IMPRESSION: No acute cardiopulmonary disease. RPTAT:AAJJ Physician Brian Date Time Electronically viewed and signed by Leif Rivers Physician on 12/06/2018 21:45 MH/ CC: KEENAN BAEZA [id number] ER Course: Patient given treatment with nebulized albuterol, ipatropium, and steroids. MDM: Chest x-ray was ordered to rule out pulmonary pathology. Results within normal limits. I have low suspicion for status asthmaticus due to patient improvment after breathing treatment. I have low suspicion for CHF, pneumonia, aspirated foreign body, pneumothorax, PE, respiratory distress, or other mergent condition based on exam and patient history. In addition, patient does not meet Wells score criteria for D-Dimer. Presentation consistent with asthma exacerbation for which patient was given breathing treatment and steroids in ER. After breathing treatment was finished, patients vitals and exam were WNL and patient stated they felt much better. Patient was discharged with rx for alubuterol and a short course of oral steroids. Patient was also advised that asthma has to be managed on outpatient basis by primary care provider. Patient discharged with strict ER precautions. Patient advised to follow up with PMD. All questions answered at discharge. Departure Diagnosis: Primary Impression: Asthma exacerbation Asthma severity: unspecified severity Asthma persistence: unspecified Qualified Codes: J45.901 - Unspecified asthma with (acute) exacerbation Condition: Stable Patient Instructions: Understanding Asthma Triggers, Your Asthma Zone Action Plan (Adult), Asthma Medications, My Asthma Symptom Diary Referrals: [facility] YOU HAVE RECEIVED A MEDICAL SCREENING EXAM AND THE RESULTS INDICATE THAT YOU DO NOT HAVE A CONDITION THAT REQUIRES URGENT TREATMENT IN THE EMERGENCY DEPARTMENT. FURTHER EVALUATION AND TREATMENT OF YOUR CONDITION CAN WAIT UNTIL YOU ARE SEEN IN YOUR DOCTORS OFFICE WITHIN THE NEXT 1-2 DAYS. IT IS YOUR RESPONSIBILITY TO MAKE AN APPOINTMENT FOR FOLOW-UP CARE. IF YOU HAVE A PRIMARY DOCTOR --you should call your primary doctor and schedule an appointment IF YOU DO NOT HAVE A PRIMARY DOCTOR YOU CAN CALL OUR PHYSICIAN REFERRAL HOTLINE AT IF YOU CAN NOT AFFORD TO SEE A PHYSICIAN YOU CAN CHOSE FROM THE FOLLOWING [facility] [address] [facility]. [facility] [address] [facility] [facility] [address] [facility] [facility] [address] [facility]. [facility] [address] [facility]. [facility]. [address] Additional Instructions: FOLLOW UP WITH YOUR PRIMARY CARE PHYSICIAN TOMORROW.Return to this facility if you are not improving as expected. KEENAN BAEZA 6, 2019 22:08
[2018-12-06] MEDS ORDERED: PROM5SYR2 PO (22:37)
[2018-12-06 22:56] VITALS: BP 114/55; PULSE 103; RESP 22
== END 2018-12-06 23:00 | disposition home or self-care (01) ==
LOC: FTE 19:39
DX: J45.901 Unspecified asthma with (acute) exacerbation (principal); I10 Essential (primary) hypertension; E11.9 Type 2 diabetes mellitus without complications; Z79.84 Long term (current) use of oral hypoglycemic drugs
CPT/HCPCS: 71045; 94644; 96374; J2930; Z7502; Z7610

== ENCOUNTER 2019-03-18 20:27 | Emergency (ER) | payer MEDICAID ==
[~2019-03-18] VITALS: Ht 154.9 cm; Wt 93.8 kg
[~2019-03-18 20:27] MED LIST changes: +PROM5SYR2 PO
[2019-03-18 20:36] VITALS: Ht 154.9 cm; Wt 93.8 kg
[2019-03-18] MEDS ORDERED: IPRATROPIUM (NEB) 0.5 MG/2.5 ML AMP NEB STA (22:04)
[2019-03-18] MEDS ORDERED: predniSONE 20 MG TAB PO STA (22:04)
[2019-03-18] MEDS ORDERED: ALBUTEROL 0.083% (NEB) 2.5 MG/3 ML AMP NEB STA (22:04)
[2019-03-18] MEDS ORDERED: KETOROLAC 30 MG INJ IM STA (22:04)
[2019-03-19 00:01] VITALS: BP 130/69; PULSE 95; RESP 18
== END 2019-03-19 00:02 | disposition home or self-care (01) ==
LOC: FTE 20:27
DX: J45.901 Unspecified asthma with (acute) exacerbation (principal); I10 Essential (primary) hypertension; E11.9 Type 2 diabetes mellitus without complications; Z79.84 Long term (current) use of oral hypoglycemic drugs
CPT/HCPCS: 81025; 94664; 96372; J1885; J7512; Z7502; Z7610